=== PATIENT | male | born 1955 | race Caucasian/White ===

== ENCOUNTER 2016-06-04 07:30 | Inpatient (IN) ==
[2016-06-28 13:56] LABS: Appearance,Urine CLEAR; Bilirubin,Urine NEG (NEG); Color,Urine YELLOW; Glucose,Urine (UA) NEGATIVE (NEG); Leukocyte Esterase,Urine NEG /uL (NEG); Nitrate,Urine NEG (NEG); Protein,Urine NEG (NEG); Specific Gravity,Urine 1.003 (1.000-1.035); Urine Blood NEG mg/dL (<0.03); Urobilinogen,Urine NEG (NEG)
[2016-06-28 14:24] LABS: Basophils # (Auto) 0.1 K/mcL (0.0-0.3); Basophils % (Auto) 0.8 % (0.0-2.0); Eosinophils # (Auto) 0.5 K/mcL (0.0-0.7); Eosinophils % (Auto) 4.9 % (0.0-7.0); Granulocytes % (Auto) 66.4 % (38.0-78.0); Lymphocytes # (Auto) 2.2 K/mcL (1.5-4.8); Lymphocytes % (Auto) 22.5 % (15.5-49.0); Mean Cell Volume 89.6 fL (80.0-100.0); Mean Corpuscular HGB Conc 33.1 g/dL (31.0-36.0); Mean Corpuscular Hemoglobin 29.7 pg (26.0-34.0); Monocytes # (Auto) 0.5 K/mcL (0.1-0.9); Monocytes % (Auto) 5.4 % (1.0-12.0); Platelet Count 304 K/mcL (140-440); RBC 4.45 M/mcL (4.50-5.90); Red Cell Distribution Width 13.5 % (11.5-14.5)
[2016-06-28 14:25] LABS: Blood Urea Nitrogen 13 mg/dl (8-23)
[2016-07-05] MEDS ORDERED: oxyCODONE 10 MG TAB.ER.12H PO SCH (06:00)
[2016-07-05] MEDS ORDERED: ACETAMINOPHEN 500 MG TABLET PO SCH (06:00)
[2016-07-05] MEDS ORDERED: CELECOXIB 200 MG CAPSULE PO SCH (06:00)
[2016-07-05] MEDS ORDERED: ceFAZolin 1 GM VIAL IV SCH (06:00)
[2016-07-05] MEDS ORDERED: PREGABALIN 150 MG CAPSULE PO SCH (06:00)
[2016-07-05] MEDS ORDERED: KETOROLAC 30 MG, ROPIVACAINE HCL/PF 49.5 ML, EPINEPHrine 0.5 MG, 0.9 % SODIUM CHLORIDE ... IJ ONE (09:00)
[2016-07-05] MEDS ORDERED: VASOPRESSIN 20 UNIT/ML VIAL IV ONE (09:25)
[2016-07-05] MEDS ORDERED: PHENYLEPHRINE 10 MG/ML VIAL IV ONE (09:25)
[2016-07-05] MEDS ORDERED: ROPIVACAINE HCL/PF 30 ML VIAL IJ ONE (09:25)
[2016-07-05] MEDS ORDERED: LIDOCAINE HCL/PF 100 MG/5 ML SYRINGE IV ONE (09:25)
[2016-07-05] MEDS ORDERED: ONDANSETRON 4 MG/2 ML VIAL IV ONE (09:25)
[2016-07-05] MEDS ORDERED: PROPOFOL 200 MG/20 ML VIAL IV ONE (09:25)
[2016-07-05] MEDS ORDERED: EPINEPHrine 1 MG/ML (1:1000) VIAL IV ONE (09:25)
[2016-07-05] MEDS ORDERED: DEXAMETHASONE 10 MG/ML VIAL IV ONE (09:25)
[2016-07-05] MEDS ORDERED: MIDAZOLAM 5 MG/5 ML VIAL IV ONE (09:25)
[2016-07-05] MEDS ORDERED: TRANEXAMIC ACID 1,000 MG/10 ML VIAL IV ONE (09:25)
[2016-07-05] MEDS ORDERED: GLYCOPYRROLATE 0.2 MG/ML VIAL IV ONE (09:25)
[2016-07-05] MEDS ORDERED: ePHEDrine 50 MG/ML AMPUL IV ONE (09:25)
[2016-07-05] MEDS ORDERED: GENTAMICIN SULFATE 800 MG/20 ML VIAL IR ONE (09:58)
[2016-07-05] MEDS ORDERED: fentaNYL 100 MCG/2 ML VIAL IV PRN (10:45)
[2016-07-05] MEDS ORDERED: NALOXONE HCL 0.4 MG/ML VIAL IV PRN (10:45)
[2016-07-05] MEDS ORDERED: PROMETHAZINE 25 MG/ML VIAL IV PRN (10:45)
[2016-07-05] MEDS ORDERED: LACTATED RINGERS 1,000 ML IV SCH (10:45)
[2016-07-05] MEDS ORDERED: PROMETHAZINE 25 MG/ML VIAL IM ONE (10:45)
[2016-07-05] MEDS ORDERED: MEPERIDINE 50 MG/ML SYRINGE IM ONE (10:45)
[2016-07-05] MEDS ORDERED: diphenhydrAMINE 50 MG/ML VIAL IV PRN (10:45)
[2016-07-05] MEDS ORDERED: ePHEDrine 50 MG/ML AMPUL IV PRN (10:45)
[2016-07-05] MEDS ORDERED: LACTATED RINGERS 250 ML IV PRN (10:45)
[2016-07-05] MEDS ORDERED: BENZOCAINE/MENTHOL 1 LOZENGE PO PRN ×2 (10:45→11:16)
[2016-07-05] MEDS ORDERED: ONDANSETRON 4 MG/2 ML VIAL IV PRN ×2 (10:45→11:16)
[2016-07-05] MEDS ORDERED: METOCLOPRAMIDE 10 MG/2 ML VIAL IV PRN (10:45)
[2016-07-05] MEDS ORDERED: HYDROmorphone 2 MG/ML SYRINGE IV PRN ×2 (10:45→11:16)
[2016-07-05] MEDS ORDERED: MEPERIDINE 25 MG/ML SYRINGE IV PRN (10:45)
[2016-07-05] MEDS ORDERED: IPRATROPIUM/ALBUTEROL 3 ML AMPUL.NEB NEB PRN (10:45)
[2016-07-05] MEDS ORDERED: METHOCARBAMOL 1,000 MG/10 ML VIAL IV PRN (10:45)
[2016-07-05] MEDS ORDERED: FLUMAZENIL 0.1 MG/ML ML IV PRN (10:45)
[2016-07-05] MEDS ORDERED: TRANEXAMIC ACID 1,000 MG/10 ML VIAL IV SCH (11:16)
[2016-07-05] MEDS ORDERED: POLYETHYLENE GLYCOL 3350 17 GM PACKET PO PRN (11:16)
[2016-07-05] MEDS ORDERED: MAGNESIUM HYDROXIDE 30 ML ORAL.SUSP PO PRN (11:16)
[2016-07-05] MEDS ORDERED: FLEETS ADULT ENEMA PR PRN (11:16)
[2016-07-05] MEDS ORDERED: ACETAMINOPHEN 325 MG TABLET PO PRN (11:16)
[2016-07-05] MEDS ORDERED: BISACODYL 10 MG SUPP.RECT PR PRN (11:16)
[2016-07-05] MEDS ORDERED: CLINDAMYCIN 900 MG in DEXTROSE 5% IN WATER 50 ML IV SCH (11:30)
--- NOTE | 2016-07-05 12:11 | Operative Note ---
DATE OF OPERATION: 07/05/2016 PREOPERATIVE DIAGNOSIS: Left knee degenerative arthritis throughout the knee. 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 PROCEDURE: Left total knee arthroplasty using the JUAN robot, size of the implants per nurse's note. These were [place]/JUAN components. SURGEON: Jorge Woods MD [employer]IONAL CLINICAL RESEARCH ASSOCIATE: Attila Sexton PA-C ANESTHESIA: General LMA anesthesia. COMPLICATIONS: None. DESCRIPTION OF PROCEDURE: The patient was brought to the operating room and put to sleep with general LMA anesthesia. Once asleep, the patient had the left leg sterilely prepped and draped in the usual sterile fashion. We exsanguinated the leg and inflated the tourniquet to 250 pounds of pressure. Midline or vastus approach performed. We inspected the entire joint which revealed severe arthritis throughout the joint. We proceeded with the JUAN total knee. Two pins above and below the knee were placed bicortical. Arrays were placed. We registered the center of hip rotation and two pins within the joint. Both, one in the femur and one in the tibia, were registered. Medial and lateral malleoli were registered. We registered 30 points on the tibia, 30 points on the femur. We then used the computer to help balance the knee. We then balanced the knee stretching the ligaments 15 degrees of flexion and 90 degrees of flexion. This seemed to set gaps. We rotated the components to fit the patient's anatomy perfectly. Once aligned anatomically, we then proceeded with the robot. We registered the robot and the pins. Cuts of the femur were performed. The cuts on the tibia were performed. We removed the bony fragments. This was done very well. We then punched into place setting the rotation using the robot on the tibial baseplate. The tibia baseplate was placed with the rotation recorded. We irrigated thoroughly and then placed the femur. This seemed to fit very nicely, size 5 femur and size 5 tibial baseplate, 9 mm poly, 36 mm patellar button. Patient was cut from 24 mm to 14 mm. A 36 patellar button was placed. We made a small chamfer cut laterally. This seemed to cover the patella very nicely. We irrigated thoroughly and cemented into place the above-mentioned sizes. Excess cement was removed. We kept the knee at 45 degrees until completely dry. We reinspected the joint and deflated the tourniquet at about 53 minutes total time. We closed the mid vastus approach with #2 FiberWire and #1 Vicryl and #2 double-armed Maxon, closed the skin with 2-0 Vicryl and adhesive closure. The patient tolerated this well without complication. DEREK:[email or web address]-ann Job ID: [id number] Doc ID: [id number] Jorge Woods MD
--- NOTE | 2016-07-05 12:24 | XRay Report ---
CLINICAL INFORMATION: Postop total knee prostheses COMPARISON: None. FINDINGS: Total knee prostheses is anatomically aligned. There are no osseous abnormalities. Periarticular gas and soft tissue swelling seen as expected. IMPRESSION: Negative Interpreted and Authenticated by: Rico Nino 07/05/16
[2016-07-05] MEDS: 0.9 % SODIUM CHLORIDE 10 ML SYRINGE IV SCH ×2 (12:41→20:40)
[2016-07-05] MEDS: 0.45 % SODIUM CHLORIDE 1,000 ML IV SCH ×3 (12:42→20:43)
[2016-07-05] MEDS: KETOROLAC 15 MG/ML VIAL IV SCH ×2 (12:56→17:47)
[2016-07-05] MEDS: ceFAZolin 1 GM VIAL IV SCH (17:46)
[2016-07-05] MEDS: HYDROcodone/APAP 10/325MG TABLET PO PRN (18:45)
[2016-07-05] MEDS: DOCUSATE SODIUM 100 MG CAPSULE PO SCH (20:38)
[2016-07-05] MEDS: oxyCODONE 10 MG TAB.ER.12H PO SCH (20:38)
[2016-07-05] MEDS: ASPIRIN 325 MG ENTERIC COATED TABLET PO SCH (20:38)
[2016-07-05] MEDS ORDERED: DOXEPIN 25 MG CAPSULE PO SCH (21:00)
[2016-07-05] MEDS ORDERED: TEMAZEPAM 15 MG CAPSULE PO PRN (21:00)
[2016-07-05] MEDS ORDERED: ATORVASTATIN 20 MG TABLET PO SCH (21:00)
[2016-07-05] MEDS ORDERED: SENNOSIDES 1 TABLET PO SCH (21:00)
[2016-07-05] MEDS ORDERED: Melatonin [Melatonin] 3 MG Tablet PO SCH (21:00)
[2016-07-06] MEDS: KETOROLAC 15 MG/ML VIAL IV SCH ×3 (00:05→11:30)
[2016-07-06] MEDS: ceFAZolin 1 GM VIAL IV SCH (00:06)
[2016-07-06] MEDS: HYDROcodone/APAP 10/325MG TABLET PO PRN ×4 (00:06→12:08)
[2016-07-06] MEDS: 0.45 % SODIUM CHLORIDE 1,000 ML IV SCH ×2 (04:01→14:40)
[2016-07-06] MEDS: 0.9 % SODIUM CHLORIDE 10 ML SYRINGE IV SCH (05:19)
--- NOTE | 2016-07-06 07:39 | Orthopedic Progress Note ---
Subjective Patient information: Note initiated : 07/06/16 at 7:37 am Service Date, if different from initiated Date: [] Patient: Guerrero Martinez 61 y/o M admitted on 07/05/16 for Total Knee Arthoplasty Robotic (L). Chief Complaint: [Pt is stable this morning on post operative day 1 without any significant concerns or complaints. Patients vital signs have remained stable. Patients dressing is dry and exhibits a grossly intact neurovascular and neuromotor exam. Patients 10 point ROS is otherwise negative. ] Objective Vital signs: Vital Signs Temp Pulse Pulse Resp BP BP BP 07/06/16 07:09 97.6 F 72 14 109/69 07/06/16 04:00 97.8 F 82 22 104/67 07/06/16 00:00 97.6 F 90 22 102/68 07/05/16 23:00 07/05/16 20:00 97.7 F 75 22 104/71 07/05/16 19:00 07/05/16 16:00 97.1 F L 82 16 94/60 07/05/16 15:56 07/05/16 15:08 80 16 92/61 07/05/16 14:00 73 16 89/57 07/05/16 13:30 74 16 96/57 07/05/16 13:15 66 16 90/58 07/05/16 13:00 74 16 89/57 07/05/16 12:45 97.1 F L 69 16 91/58 07/05/16 12:10 78 21 91/60 07/05/16 11:55 68 17 99/58 07/05/16 11:40 97.0 F L 79 14 90/55 Pulse Ox 07/06/16 07:09 92 07/06/16 04:00 96 07/06/16 00:00 93 07/05/16 23:00 95 07/05/16 20:00 94 07/05/16 19:00 94 07/05/16 16:00 95 07/05/16 15:56 96 07/05/16 15:08 97 07/05/16 14:00 95 07/05/16 13:30 98 07/05/16 13:15 95 07/05/16 13:00 07/05/16 12:45 96 07/05/16 12:10 98 07/05/16 11:55 100 07/05/16 11:40 97 Intake and Output 07/05/16 07/06/16 07/06/16 21:59 05:59 13:59 Intake Total 1691 / 1691 1713 / 1713 Output Total 3575 / 3575 Balance 1691 / 1691 -1862 / -1862 Intake: IV 971 / 971 913 / 913 Sodium Chloride 0.45% 1, 971 / 971 913 / 913 000 ml @ 125 mls/hr IV . Q8H BRISEIDA Rx#:[id number] Oral 720 / 720 800 / 800 Output: Urine Catheter Amount 3575 / 3575 Other: Meal Dinner Percent of Meal Consumed 100% Weight 198 lb Intake & Output: Intake & Output 07/05/16 07/06/16 07/06/16 21:59 05:59 13:59 Intake Total 1691 / 1691 1713 / 1713 Output Total 3575 / 3575 Balance 1691 / 1691 -1862 / -1862 Weight 198 lb Intake: IV 971 / 971 913 / 913 Sodium Chloride 0.45% 1, 971 / 971 913 / 913 000 ml @ 125 mls/hr IV . Q8H BRISEIDA Rx#:[id number] Oral 720 / 720 800 / 800 Output: Urine Catheter Amount 3575 / 3575 Other: Meal Dinner Percent of Meal Consumed 100% Incision: Yes healing Incision clean and dry: Yes Dressing: Yes clean, Yes dry Weight bearing status: full Neurological exam IM: Yes motor sensory intact, Yes neurovascular intact Extremities exam IM: Yes Foot pink and warm, Yes neurovascular intact - Labs CBC & BMP: 07/06/16 04:55 06/28/16 10:34 Labs: Orthopedic Labs 06/28/16 10:34 PT 12.6 INR 0.9 APTT 30 07/06/16 06/28/16 04:55 10:35 Hgb 13.2 L Hct 33.5 L 39.8 L Assessment and Plan (1) Hx of total knee arthroplasty Patient has been educated regarding wound care and dressings, follow up recommendations, and medication use. We will f/u with the patient within 2-3 weeks for wound check. Status: Acute
--- NOTE | 2016-07-06 07:41 | Discharge Summary ---
Ortho Discharge - TKA - Patient Instructions Diet: Regular Diet Activity: activity as tolerated, weight bearing as tolerated Total Knee Protocol: For Total Knee: Start ROM NURIS with stationary bike or rocking chair. Work on gaining full extension of knee. Posterior dislocation precautions provided. Hip abductor strengthening and gait training instructions provided. Apply Cryocuff as instructed. Dressing Care: May shower in 2 days Patient Education: Total Knee Replacement (DC) Additional Instructions: CPM for home use - Problem Maintenance (1) Hx of total knee arthroplasty Status: Acute - Follow Up Plan Follow Up Appointments: Attila Sexton PA-C [Physician Road Advisor] - 07/20/16 9:20 am Disposition: Home, Self-Care Prognosis: Good Rehab Potential: Good I certify that the patient requires SNF services: No Overall status at discharge: patient is progressing back to baseline - Orders For Discharge Prescriptions: Aspirin [Ecotrin] 325 mg PO BID #60 tab.ec Docusate Sodium [Colace] 100 mg PO BID #60 capsule HYDROcodone/APAP 10/325MG [[place] 10/325Mg] 1 - 2 tab PO Q4HP PRN #75 tablet PRN Reason: Pain Additional Discharge Orders: Physical Therapy at Discharge - TKA Location: Determined By Patient CPM Discharge Order Location: Determined By Patient Toilet Riser Discharge Order Location: Determined By Patient Walker Location: Determined By Patient
[2016-07-06] MEDS ORDERED: MULTIVIT,THER IRON,CA,FA & MIN 1 TABLET PO SCH (09:00)
[2016-07-06] MEDS ORDERED: VITAMIN B COMPLEX 1 CAPSULE PO SCH (09:00)
[2016-07-06] MEDS: oxyCODONE 10 MG TAB.ER.12H PO SCH (09:38)
[2016-07-06] MEDS: DOCUSATE SODIUM 100 MG CAPSULE PO SCH (09:40)
[2016-07-06] MEDS: ASPIRIN 325 MG ENTERIC COATED TABLET PO SCH (09:40)
[2016-07-06] MEDS: amLODIPine 10 MG TABLET PO SCH ×2 (09:40→11:29)
[2016-07-06] MEDS: BISOPROLOL 5 MG TABLET PO SCH ×2 (09:41→11:29)
[2016-07-06] MEDS: LISINOPRIL 20 MG TABLET PO SCH ×2 (09:41→11:29)
== END 2016-07-06 15:00 | disposition home or self-care (01) | DRG 470 ==
LOC: MEDSUR 07-05 06:55
PROVIDERS: ADMIT Orthopaedic Surgery; ATTEND Orthopaedic Surgery